=== PATIENT | female | born 1965 | race Caucasian/White ===

== ENCOUNTER 2018-10-20 17:06 | Emergency (ER) | payer OTHER ==
[~2018-10-20] VITALS: Ht 170.2 cm; Wt 113.4 kg
--- NOTE | 2018-10-20 17:21 | NUR ---
Patient transferred to bed 6 via wheelchair by tech. RN evaluating patient at bedside.
[2018-10-20 17:25] VITALS: BP 122/71
--- NOTE | 2018-10-20 17:36 | NUR ---
PATIENT PRESENTS TO ED WITH C/O LEFT FOOT PAIN S/P FALL APPROX 3 DAYS AGO. STATES PAIN OF 10/10 AT THIS TIME. VSS. HOB ELEVATED; BEDRAILS UP X1. BED DOWN. PENDING ER MD EVALUATION.
[2018-10-20] MEDS ORDERED: KETOROLAC 30 MG/ML VIAL IM ONE (17:45)
--- NOTE | 2018-10-20 18:25 | NUR ---
PLACED A SHORT LEG POSTERIOR SPLING ON PT'S LEFT FOOT.
--- NOTE | 2018-10-20 18:30 | NUR ---
Patient discharged with v/s stable. Written and verbal after care instructions given and explained. Patient alert, oriented and verbalized understanding of instructions. Wheel Chair Assisted to car. All questions addressed prior to discharge. ID band removed. Patient advised to follow up with PMD. Rx of Prednisone, Acetaminophen and motrin given. Patient educated on indication of medication including possible reaction and side effects. Opportunity to ask questions provided and answered.
[2018-10-20 18:34] VITALS: BP 122/71
== END 2018-10-20 18:30 | disposition home or self-care (01) ==
LOC: MED 17:06
DX: S92.352A Displaced fracture of fifth metatarsal bone, left foot, initial encounter for closed fracture (principal); S92.192A Other fracture of left talus, initial encounter for closed fracture; M72.2 Plantar fascial fibromatosis; E11.9 Type 2 diabetes mellitus without complications; I10 Essential (primary) hypertension; E07.9 Disorder of thyroid, unspecified; W01.0XXA Fall on same level from slipping, tripping and stumbling without subsequent striking against object, initial encounter; Y93.89 Activity, other specified; Y92.099 Unspecified place in other non-institutional residence as the place of occurrence of the external cause; Y99.8 Other external cause status
CPT/HCPCS: 29515; 73630; 96372; 99283; J1885; Q0092